=== PATIENT | male | born 1945 | race Caucasian/White ===

== ENCOUNTER 2017-06-29 20:50 | Emergency (ER) | payer MEDICARE, BC ==
[2017-06-29] MEDS ORDERED: Sodium Chloride 0.9% 10 ML Syringe FLUSH PRN (21:14)
[2017-06-29] MEDS ORDERED: Adenosine 6 MG/2 ML SDV IVPUSH ONE (21:35)
[2017-06-29] MEDS ORDERED: Propofol 200 MG/20 ML SDV IVPUSH ONE (22:06)
[2017-06-29] MEDS: Sodium Chloride 0.9% 1,000 ML IV SCH ×2 (22:08→23:21)
[2017-06-29] MEDS ORDERED: Diltiazem 25 MG/5 ML SDV IVPUSH ONE ×2 (22:40→23:15)
[2017-06-29] MEDS ORDERED: NS + KCl 20mEq/L 1,000 ML IV SCH (23:30)
--- NOTE | 2017-06-30 00:19 | EDM.PDOC ---
ED HPI GENERAL MEDICAL PROBLEM - General Chief Complaint: Cardiovascular Problem Stated Complaint: A-FIB Time Seen by Provider: 06/29/17 21:09 Source of Information: Reports: Patient History Limitations: Reports: No Limitations - History of Present Illness INITIAL COMMENTS - FREE TEXT/NARRATIVE: History of present illness: [71-year-old male is presenting in A. fib with rapid response. He does have a history of same and is on warfarin and other medications for rate control. The first time this happened was 5 months ago and he was at [facility] and was treated in their emergency department and started on the medications that he is currently on. He does admit to forgetting to take his medications this morning. Sign of any chest pain or shortness of breath with this and feels quite well. He 's had no cold symptoms cough fevers chills sweats and has been feeling fine of late.] Review of systems: As per history of present illness and below otherwise all systems reviewed and negative. Past medical history: As per history of present illness and as reviewed below otherwise noncontributory. Surgical history: As per history of present illness and as reviewed below otherwise noncontributory. Social history: No reported history of drug or alcohol abuse. Family history: As per history of present illness and as reviewed below otherwise noncontributory. Physical exam: HEENT: Atraumatic, normocephalic, pupils reactive, negative for conjunctival pallor or scleral icterus, mucous membranes moist, throat clear, neck supple, nontender, trachea midline. Lungs: Clear to auscultation, breath sounds equal bilaterally, Heart: Irregular rate and rhythm without murmur Abdomen: Soft, nondistended, nontender. Negative for masses or hepatosplenomegaly. Pelvis: Stable nontender. Genitourinary: Deferred. Rectal: Deferred. Extremities: Atraumatic, negative for cords or calf pain. Neurovascular unremarkable. Neuro: Awake, alert, oriented. Cranial nerves II through XII unremarkable. Cerebellum unremarkable. Motor and sensory unremarkable throughout. Exam nonfocal. Diagnostics: [D-dimer was normal INR is 1.28. He had stopped taking his warfarin for a while because he was having some hematuria. He is back on it now. CBC is unremarkable other than his hemoglobin was a little high glucose was about 200 TSH was normal.] Therapeutics: [After obtaining consent and discussing options with him we did try to the left cardiovert him using propofol 80 mg for deep sedation and 200 J of synchronized cardioversion. He was in sinus rhythm after this for about 20 minutes or so and then slipped back into A. fib with rapid response. [facility] provided him with 2 boluses of diltiazem and that brought his heart rate from the 140s to the 110s to 120s he was asymptomatic throughout all this.] Impression: [Atrial fibrillation with rapid response] Plan: [Gave the option of being hospitalized and then another cardioversion in the morning versus going home and resuming his medications and he chooses the latter. I think this is reasonable plan. Since he missed his Toprol this morning and advising him to go ahead and take that tonight when he gets home. He is to return to the ER if he develops any chest pain or shortness of breath or he has persistent A. fib and wishes to consider cardioversion.] Definitive disposition and diagnosis as appropriate pending reevaluation and review of above. denies pain Pain Score (Numeric/FACES): 0 - Related Data Allergies Allergy/AdvReac Type Severity Reaction Status Date / Time morphine Allergy Itching Verified 06/29/17 21:17 Home Meds: Home Meds Ascorbic Acid [Vitamin C] 1,000 mg PO 06/29/17 [History] Aspirin [Rigo Chewable] 81 mg PO DAILY 06/29/17 [History] Cholecalciferol (Vitamin D3) [Vitamin D3] 1,000 units PO 06/29/17 [History] Diltiazem HCl [Diltiazem ER] 120 mg PO DAILY 06/29/17 [History] Metoprolol Succinate [Toprol XL 100mg] 100 mg PO DAILY 06/29/17 [History] Multivit-Min/FA/Lycopen/Lutein [Centrum Silver Men Tablet] 1 each PO 06/29/17 [ History] Omeprazole [Omeprazole] 06/29/17 [History] Pioglitazone [Actos] 15 mg PO 06/29/17 [History] Ramipril [Ramipril] 06/29/17 [History] Ubidecarenone [Coq-10] 100 mg PO 06/29/17 [History] Warfarin Sodium [Jantoven] 2.5 mg PO DAILY 06/29/17 [History] amLODIPine [Norvasc] 10 mg PO DAILY 06/29/17 [History] atorvaSTATin [Lipitor] 40 mg PO DAILY 06/29/17 [History] Past Medical History HEENT History: Reports: None Cardiovascular History: Reports: Afib, IL, Stents, Other (See Below) Other Cardiovascular History: x2 IL, x2 cardiac stents Respiratory History: Reports: None Gastrointestinal History: Reports: None Genitourinary History: Reports: None Musculoskeletal History: Reports: Arthritis, Back Pain, Chronic, Neck Pain, Chronic Neurological History: Reports: None Psychiatric History: Reports: None Endocrine/Metabolic History: Reports: Diabetes, Type II Hematologic History: Reports: None Immunologic History: Reports: None Oncologic (Cancer) History: Reports: None Dermatologic History: Reports: Other (See Below) Other Dermatologic History: Pregonodularus - Infectious Disease History Infectious Disease History: Reports: Chicken Pox, Measles, Mumps - Past Surgical History Head Surgeries/Procedures: Reports: None HEENT Surgical History: Reports: Oral Surgery Cardiovascular Surgical History: Reports: Coronary Artery Bypass, Coronary Artery Stent Respiratory Surgical History: Reports: None GI Surgical History: Reports: None Endocrine Surgical History: Reports: None Neurological Surgical History: Reports: None Musculoskeletal Surgical History: Reports: None Oncologic Surgical History: Reports: None Dermatological Surgical History: Reports: None Social & Family History - Tobacco Use Smoking Status *Q: Light Tobacco Smoker Years of Tobacco use: 4 Packs/Tins Daily: 0.2 - Caffeine Use Caffeine Use: Reports: Coffee, Tea - Recreational Drug Use Recreational Drug Use: No ED ROS GENERAL - Review of Systems Review Of Systems: ROS reveals no pertinent complaints other than HPI. ED EXAM, GENERAL - Physical Exam Exam: See Below Course - Vital Signs Last Recorded V/S: Last Vital Signs Temp 36.0 C 06/29/17 21:02 Pulse 123 H 06/29/17 23:22 Resp 14 06/29/17 23:20 BP 145/76 H 06/29/17 23:22 Pulse Ox 98 06/29/17 23:20 - Orders/Labs/Meds Orders: Active Orders 24 hr Category Date Time Status EKG Documentation Completion [RC] ASDIRECTED Care 06/29/17 21:15 Active Chest 1V Frontal [CR] Stat Exams 06/29/17 21:14 Taken NS + KCl 20mEq/L [Normal Saline with 20 mEq KCl] 1,000 Med 06/29/17 23:30 Active ml IV ASDIRECTED Sodium Chloride 0.9% [Normal Saline] 1,000 ml Med 06/29/17 21:30 Active IV ASDIRECTED Sodium Chloride 0.9% [Saline Flush] Med 06/29/17 21:14 Active 10 ml FLUSH ASDIRECTED PRN Saline Lock Insert [OM.PC] Stat Oth 06/29/17 21:14 Ordered EKG 12 Lead [EK] Stat Ther 06/29/17 21:14 Ordered Medication Orders Sodium Chloride (Normal Saline) 1,000 mls @ 250 mls/hr IV ASDIRECTED CHECO Last Admin: 06/29/17 23:21 Dose: 250 mls/hr Infusion: 06/29/17 23:21 Dose: 250 mls/hr Admin: 06/29/17 22:08 Dose: 250 mls/hr Potassium Chloride/Sodium Chloride (Normal Saline With 20 Meq Kcl) 1,000 mls @ 250 mls/hr IV ASDIRECTED CHECO Sodium Chloride (Saline Flush) 10 ml FLUSH ASDIRECTED PRN PRN Reason: Keep Vein Open Last Admin: 06/29/17 22:09 Dose: 10 ml Labs: Laboratory Tests 06/29/17 06/29/17 06/29/17 Range/Units 21:27 21:27 21:27 WBC 7.1 (4.5-11.0) K/uL RBC 5.32 (4.30-5.90) M/uL Hgb 17.4 H (12.0-15.0) g/dL Hct 49.2 (40.0-54.0) % MCV 93 (80-98) fL MCH 33 H (27-31) pg MCHC 35 (32-36) % Plt Count 203 (150-400) K/uL Neut % (Auto) 49 (36-66) % Lymph % (Auto) 32 (24-44) % [place] % (Auto) 16 H (2-6) % Eos % (Auto) 3 (2-4) % Baso % (Auto) 1 (0-1) % PT 13.8 H (9.5-12.0) sec INR 1.28 H (0.80-1.20) D-Dimer, Quantitative < 100 (0.0-400.0) ng/mL Sodium (140-148) mmol/L Potassium (3.6-5.2) mmol/L Chloride (100-108) mmol/L Carbon Dioxide (21-32) mmol/L Anion Gap (5.0-14.0) mmol/L BUN (7-18) mg/dL Creatinine (0.8-1.3) mg/dL Est Cr Clr Drug Dosing mL/min Estimated GFR (MDRD) (>60) Glucose (74-106) mg/dL Calcium (8.5-10.1) mg/dL Magnesium (1.8-2.4) mg/dL Total Bilirubin (0.2-1.0) mg/dL AST (15-37) U/L ALT (12-78) U/L Alkaline Phosphatase (46-116) U/L Troponin I (0.000-0.056) ng/mL Total Protein (6.4-8.2) g/dL Albumin (3.4-5.0) g/dL Globulin (2.3-3.5) g/dL Albumin/Globulin Ratio (1.2-2.2) TSH, Ultra Sensitive (0.358-3.740) uIU/mL 06/29/17 06/29/17 Range/Units 21:27 21:27 WBC (4.5-11.0) K/uL RBC (4.30-5.90) M/uL Hgb (12.0-15.0) g/dL Hct (40.0-54.0) % MCV (80-98) fL MCH (27-31) pg MCHC (32-36) % Plt Count (150-400) K/uL Neut % (Auto) (36-66) % Lymph % (Auto) (24-44) % [place] % (Auto) (2-6) % Eos % (Auto) (2-4) % Baso % (Auto) (0-1) % PT (9.5-12.0) sec INR (0.80-1.20) D-Dimer, Quantitative (0.0-400.0) ng/mL Sodium 139 L (140-148) mmol/L Potassium 3.8 (3.6-5.2) mmol/L Chloride 105 (100-108) mmol/L Carbon Dioxide 24 (21-32) mmol/L Anion Gap 13.8 (5.0-14.0) mmol/L BUN 16 (7-18) mg/dL Creatinine 0.9 (0.8-1.3) mg/dL Est Cr Clr Drug Dosing 75.28 mL/min Estimated GFR (MDRD) > 60 (>60) Glucose 207 H (74-106) mg/dL Calcium 8.9 (8.5-10.1) mg/dL Magnesium 2.0 (1.8-2.4) mg/dL Total Bilirubin 0.5 (0.2-1.0) mg/dL AST 30 (15-37) U/L ALT 42 (12-78) U/L Alkaline Phosphatase 92 (46-116) U/L Troponin I < 0.017 (0.000-0.056) ng/mL Total Protein 7.5 (6.4-8.2) g/dL Albumin 3.9 (3.4-5.0) g/dL Globulin 3.6 H (2.3-3.5) g/dL Albumin/Globulin Ratio 1.1 L (1.2-2.2) TSH, Ultra Sensitive 1.739 (0.358-3.740) uIU/mL Meds: Medications Generic Name Dose Route Start Last Admin Trade Name Freq PRN Reason Stop Dose Admin Sodium Chloride 1,000 mls @ 250 mls/hr 06/29/17 21:30 06/29/17 23:21 Normal Saline IV 250 mls/hr ASDIRECTED CHECO Administration Potassium Chloride/Sodium Chloride 1,000 mls @ 250 mls/hr 06/29/17 23:30 Normal Saline With 20 Meq Kcl IV ASDIRECTED CHECO Sodium Chloride 10 ml 06/29/17 21:14 06/29/17 22:09 Saline Flush FLUSH 10 ml ASDIRECTED PRN Administration Keep Vein Open Discontinued Medications Generic Name Dose Route Start Last Admin Trade Name Freq PRN Reason Stop Dose Admin Adenosine 6 mg 06/29/17 21:35 06/29/17 22:00 Adenocard IVPUSH 06/29/17 21:36 6 mg NOW ONE Administration Diltiazem HCl 10 mg 06/29/17 22:40 06/29/17 22:55 Diltiazem IVPUSH 06/29/17 22:41 10 mg ONETIME ONE Administration Diltiazem HCl 10 mg 06/29/17 23:15 06/29/17 23:22 Diltiazem IVPUSH 06/29/17 23:16 10 mg ONETIME ONE Administration Propofol 100 mg 06/29/17 22:06 06/29/17 22:13 Diprivan 20 Ml IVPUSH 06/29/17 22:07 80 mg ONETIME ONE Administration Departure - Departure Time of Disposition: 00:19 Disposition: Home, Self-Care 01 Condition: Good Clinical Impression: Atrial fibrillation with rapid ventricular response Referrals: PCP,None [Primary Care Provider] - Additional Instructions: As I have already stated to go ahead and take your metoprolol this evening and then resume your medications as they have been ordered for you tomorrow. If your heart rate is less than 60 in the morning when you get up you should skip your Toprol all but it's unlikely that that will be the case. Hopefully he will spontaneously convert back into a normal sinus rhythm but that does not happen at some point in time another electrocardioversion could be considered. - My Orders Last 24 Hours: My Active Orders 06/29/17 21:14 Chest 1V Frontal [CR] Stat Sodium Chloride 0.9% [Saline Flush] 10 ml FLUSH ASDIRECTED PRN Saline Lock Insert [OM.PC] Stat EKG 12 Lead [EK] Stat 06/29/17 21:15 EKG Documentation Completion [RC] ASDIRECTED 06/29/17 21:30 Sodium Chloride 0.9% [Normal Saline] 1,000 ml IV ASDIRECTED 06/29/17 23:30 NS + KCl 20mEq/L [Normal Saline with 20 mEq KCl] 1,000 ml IV ASDIRECTED - Assessment/Plan Last 24 Hours: My Active Orders 06/29/17 21:14 Chest 1V Frontal [CR] Stat Sodium Chloride 0.9% [Saline Flush] 10 ml FLUSH ASDIRECTED PRN Saline Lock Insert [OM.PC] Stat EKG 12 Lead [EK] Stat 06/29/17 21:15 EKG Documentation Completion [RC] ASDIRECTED 06/29/17 21:30 Sodium Chloride 0.9% [Normal Saline] 1,000 ml IV ASDIRECTED 06/29/17 23:30 NS + KCl 20mEq/L [Normal Saline with 20 mEq KCl] 1,000 ml IV ASDIRECTED
[2017-06-30 00:22] VITALS: BP 122/76
--- NOTE | 2017-06-30 11:52 | CR ---
Sternotomy. Heart size upper limits of normal. No focal consolidation.
== END 2017-06-30 00:28 | disposition home or self-care (01) ==
LOC: JP.ED 20:50
DX: I48.91 Unspecified atrial fibrillation (principal); E11.9 Type 2 diabetes mellitus without complications; F17.210 Nicotine dependence, cigarettes, uncomplicated; I25.2 Old myocardial infarction; Z95.5 Presence of coronary angioplasty implant and graft; M19.90 Unspecified osteoarthritis, unspecified site; Z98.890 Other specified postprocedural states; Z95.1 Presence of aortocoronary bypass graft; Z79.82 Long term (current) use of aspirin; Z79.01 Long term (current) use of anticoagulants; Z88.5 Allergy status to narcotic agent
CPT/HCPCS: 36415; 71010; 80053; 83735; 84443; 84484; 85025; 85379; 85610; 92960; 93005; 93010; 96361; 96374; 96375; 99284; J0153; J2704; J3490; J7040; J7050